=== PATIENT | male | born 1955 | race Two or more races ===

== ENCOUNTER → 2017-04-01 | Outpatient (CLI) | payer BC ==
[~2017-04-01] MED LIST: AMLO10TA2 PO; AMLO5TAB2 PO; ASPI-496 PO; LISI40TA PO; METF10002 PO; METO-95 PO; NAPR220C PO; OMEP20TA62 PO; PRAS10TA4 PO; SIMV20TA3 PO; SITA50TA PO
== END | disposition home or self-care (01) ==
LOC: CVU 07:04
PROVIDERS: ATTEND Surgery
DX: I71.4 Abdominal aortic aneurysm, without rupture (principal); I10 Essential (primary) hypertension; E11.9 Type 2 diabetes mellitus without complications; I25.2 Old myocardial infarction; Z95.5 Presence of coronary angioplasty implant and graft
CPT/HCPCS: 76706

== ENCOUNTER → 2017-04-11 | Outpatient (CLI) | payer BC ==
[~2017-04-11] MED LIST changes: +REGADENOSON 0.4 MG/5 ML SYRINGE ONE
== END | disposition home or self-care (01) ==
LOC: CFH 08:39
PROVIDERS: ATTEND Internal Medicine Cardiovascular Disease
DX: I25.10 Atherosclerotic heart disease of native coronary artery without angina pectoris (principal); E11.9 Type 2 diabetes mellitus without complications
CPT/HCPCS: 78452; 93017; A9502; J2785

== ENCOUNTER → 2018-07-04 | Outpatient (CLI) | payer BC ==
[~2018-07-04] MED LIST changes: +AMLO-150 PO; -AMLO10TA2 PO; +AMLO10TA6 PO; -AMLO5TAB2 PO; -REGADENOSON 0.4 MG/5 ML SYRINGE ONE
== END | disposition home or self-care (01) ==
LOC: CVU 06:54
PROVIDERS: ATTEND Surgery
DX: I71.4 Abdominal aortic aneurysm, without rupture (principal); E78.2 Mixed hyperlipidemia; I65.23 Occlusion and stenosis of bilateral carotid arteries; I10 Essential (primary) hypertension; E11.9 Type 2 diabetes mellitus without complications; I25.10 Atherosclerotic heart disease of native coronary artery without angina pectoris; Z95.5 Presence of coronary angioplasty implant and graft
CPT/HCPCS: 93880; 93978

== ENCOUNTER 2018-11-06 07:02 | Emergency (ER) | payer BC ==
[~2018-11-06] VITALS: Ht 167.6 cm; Wt 101.1 kg
[~2018-11-06 07:02] MED LIST changes: -AMLO10TA6 PO; +AMLO10TA8 PO; -NAPR220C PO; +NAPR220C62 PO
--- NOTE | 2018-11-06 07:14 | NUR ---
PT TO ROOM AT THIS TIME.
--- NOTE | 2018-11-06 07:19 | NUR ---
63 y/o male presents to ed with c/o LLQ ABD PAIN. PER PT "IT'S BEEN HURTING ABOUT 2 WEEKS. I TRY TO EAT ONCE A DAY ABOUT 2 PM. AFTER I EAT, IT HURTS. I'M NOT SURE." NO ACUTE DISTRESS NOTED. EDPA BEDSIDE. PT REFUSES PAIN MEDICATIONS AT THIS TIME.NO C/O V/D, TRAUMA, SYNCOPE, CP, SOB. PT PLACED ON CONT PULSE OX,NIBP. BEDSIDE.
[2018-11-06] MEDS ORDERED: SODIUM CHLORIDE FLUSH 10ML SYR IVF ONE (07:30)
--- NOTE | 2018-11-06 07:44 | NUR ---
PIV ESTABLISHED. PT TOLERATED WITH NO COMPLICATIONS. PT PROVIDED UA. SENT UA TO LAB. NO NEEDS REQUESTED AT THIS TIME. BEDSIDE.
[2018-11-06 07:51] LABS: MICROSCOPIC NOT IND
[2018-11-06 07:55] LABS: CULTURE INDICATED? NO
--- NOTE | 2018-11-06 08:25 | NUR ---
PT RESTING ON GURNEY. NO ACUTE DISTRESS NOTED. BEDSIDE. NO NEEDS REQUESTED AT THIS TIME.
--- NOTE | 2018-11-06 08:26 | NUR ---
WAITING ON LABS BEFORE CT
[2018-11-06 08:37] LABS: ALANINE AMINOTRANSFERASE 42 U/L (12-78); ALBUMIN 3.9 g/dL (3.4-5.0); ANION GAP 6 mmol/L (5-15); CALCIUM 9.2 mg/dL (8.5-10.1); CHLORIDE 109 mmol/L (98-107); CREATININE 0.96 mg/dL (0.7-1.3)
[2018-11-06 08:39] LABS: ALKALINE PHOSPHATASE 64 U/L (45-117); BILIRUBIN,TOTAL 0.5 mg/dL (0.2-1.0); TOTAL PROTEIN 7.4 g/dL (6.4-8.2)
[2018-11-06 08:43] LABS: BASOPHILS # (AUTO) 0.03 x10^3/uL (0-0.1); BASOPHILS % (AUTO) 1 % (0-1); EOSINOPHILS # (AUTO) 0.24 x10^3/uL (0-0.4); EOSINOPHILS % (AUTO) 4 % (1-7); LYMPHOCYTES # (AUTO) 2.11 x10^3/uL (1-3.4); LYMPHOCYTES % (AUTO) 33 % (22-44); MD NO; MEAN CORPUSCULAR HEMOGLOBIN 30.7 pg (27.5-34.5); MEAN CORPUSCULAR VOLUME 90.2 fL (81-97); MEAN PLATELET VOLUME 7.8 fL (7.4-10.4); MONOCYTES # (AUTO) 0.54 x10^3/uL (0.2-0.8); MONOCYTES % (AUTO) 8 % (2-9); NEUTROPHILS % (AUTO) 55 % (42-75); PLATELET COUNT 219 x10^3/uL (130-400); RED BLOOD COUNT 4.89 x10^6/uL (4.38-5.82); RED CELL DISTRIBUTION WIDTH 13.4 % (9.4-14.8)
[2018-11-06] MEDS ORDERED: OMNIPAQUE 350 MG/ML, 100ML BOTTLE ONE (08:59)
--- NOTE | 2018-11-06 09:03 | NUR ---
PT BACK FROM IMAGING.
--- NOTE | 2018-11-06 09:05 | NUR ---
PT RESTING ON GURNEY. NO ACUTE DISTRESS NOTED. BEDSIDE. NO NEEDS REQUESTED AT THIS TIME.
[2018-11-06 09:06] VITALS: BP 130/85
--- NOTE | 2018-11-06 10:01 | NUR ---
Patient/Caregiver given discharge instructions and they have confirmed that they understand the instructions. Patient ambulatory with steady gait. PT LEFT WITH ALL PERSONAL BELONGINGS.
== END 2018-11-06 10:03 | disposition home or self-care (01) ==
LOC: ED 08:56
DX: I71.4 Abdominal aortic aneurysm, without rupture (principal); R10.32 Left lower quadrant pain; I10 Essential (primary) hypertension; E78.00 Pure hypercholesterolemia, unspecified; E11.9 Type 2 diabetes mellitus without complications
CPT/HCPCS: 36415; 74177; 80053; 81003; 83690; 85025; 99284; Q9967